=== PATIENT | female | born 2005 | race African-American/Black ===

== ENCOUNTER 2024-12-11 11:59 | Emergency (ER) | payer OTHER ==
[2024-12-11] MEDS ORDERED: diphenhydrAMINE 50 MG/ML VIAL ONE (12:25)
[2024-12-11] MEDS ORDERED: Ketorolac Tromethamine 30 MG (1 mL) VIAL ONE (12:26)
[2024-12-11] MEDS ORDERED: Metoclopramide HCl 10 MG (2 mL) VIAL ONE (12:26)
[2024-12-11] MEDS ORDERED: Dexamethasone 10 MG/ML VIAL ONE (13:50)
== END 2024-12-11 14:00 | disposition home or self-care (01) ==
LOC: CSHERS 11:59
DX: G43.909 Migraine, unspecified, not intractable, without status migrainosus (principal)
CPT/HCPCS: 71046; 87428; 96365; 96375; J1100; J1200; J1885; J2765

== ENCOUNTER 2025-09-02 19:27 | Emergency (ER) | payer OTHER, SELFPAY ==
[2025-09-02 20:13] LABS: Glucose, Urine (Dipstick) Normal (Negative); Leukocyte Negative (Negative); Protein, Urine (Dipstick) 15 mg/dl (Neg-Trace); Specific Gravity, Urine 1.030 (1.005-1.030)
[2025-09-02 20:21] LABS: #Basophils 0.04 10x3/uL (0.0-0.2); #Eosinophils 0.17 10x3/uL (0.0-0.5); #Monocytes 0.60 10x3/uL (0.0-1.1); #Neutrophils 3.78 10x3/uL (1.5-8.4); %Basophils 0.6 % (0.0-2.0); %Eosinophils 2.5 % (0.0-6.0); %Lymphocytes 31.6 % (18.0-47.0); %Monocytes 8.9 % (0.0-10.0); %Neutrophils 56.3 % (40.0-75.0); Hematocrit 36.4 % (34.9-44.5); Hemoglobin 12.5 g/dL (12.0-15.5); Mean Corpuscular Hemoglobin 28.8 pg (27.0-33.0); Mean Corpuscular Volume 83.9 fL (81.6-98.3); Platelet Count 238 10x3/uL (150-450); Red Blood Cell (RBC) Count 4.34 10x6/uL (3.90-5.03); White Blood Cell (WBC) Count 6.73 10x3/uL (3.5-10.5)
[2025-09-02 20:21] LABS: Cocaine Metabolite Screen Negative (Negative); THC/Cannabinoid Screen Negative (Negative); Tricyclic Screen Negative (Negative)
[2025-09-02 20:24] LABS: Bacteria/HPF 2+ HPF (None Seen); CAUTI Indications for Culture Pregnancy; RBC/HPF 0-3 HPF (0-3); WBC/HPF 0-3 HPF (0-3)
[2025-09-02 20:26] LABS: Mucous/LPF 3+ LPF (<2+)
[2025-09-02 20:27] LABS: Urine Culture Reflex Yes Yes
[2025-09-02 21:01] LABS: ALT (SGPT) 10 U/L (Less than 34); AST (SGOT) 26 U/L (11-34); Albumin 3.7 g/dL (3.1-4.5); Alkaline Phosphatase 55 U/L (40-100); Anion Gap 10 mmol/L (10-20); BUN (Urea Nitrogen) 10 mg/dL (7.0-18.7); Bilirubin, Total 0.1 mg/dL (0.3-1.2); Calc. Creatinine Clearance 0 mL/min (70-130); Calcium 9.0 mg/dL (7.8-10.44); Carbon Dioxide 22 mmol/L (22-29); Chloride 108 mmol/L (98-107); Globulin 3.2 g/dL (2.4-3.5); Glucose 76 mg/dL (70-105); Potassium 3.8 mmol/L (3.5-5.1); Sodium 136 mmol/L (136-145)
== END 2025-09-02 22:00 | disposition home or self-care (01) ==
LOC: CSHERS 19:27
DX: O23.41 Unspecified infection of urinary tract in pregnancy, first trimester (principal); N39.0 Urinary tract infection, site not specified; Z3A.10 10 weeks gestation of pregnancy
CPT/HCPCS: 36415; 76801; 76856; 80053; 80306; 81001; 84702; 85025; 86900; 86901; 87086